=== PATIENT | female | born 1950 | race Caucasian/White ===

== ENCOUNTER 2021-09-13 10:19 | Emergency (ER) | payer MEDICARE, SELFPAY ==
[2021-09-13] VITALS (62 sets, daily range): BP systolic 135–183; BP diastolic 58–93; PULSE 56–77; RESP 7–19; TEMP 36.1–37; O2SAT 95–100
--- NOTE | 2021-09-13 10:15 | RT.EKG_ITS ---
APPROVED REPORT Exam: Resting ECG Reason for Exam: chest pain Patient Location: E HR:76 bpm ECG Measurements Heart Rate 76 AXIS RI 200 P 42 QRSd 94 QRS -43 QT 386 T 50 QTc 435 Conclusion Sinus rhythm...normal P axis, V-rate 60- 99 Probable left atrial enlargement...P >50mS, <-0.10mV V1 Left ventricular hypertrophy...multiple LVH criteria sinus rhythm at 76, left axis, no STEMI, nondiagnostic EKG
--- NOTE | 2021-09-13 10:30 | DI.RAD_ITS ---
Exam(s) XR PORTABLE CHEST AP EXAM: XR PORTABLE CHEST AP CLINICAL HISTORY: chest pain TECHNIQUE: 2D digital imaging was performed. COMPARISON: No exams were available for comparison FINDINGS: LUNGS: Clear. No pleural abnormality seen. HEART: Normal. AORTA: Normal. BONES: Unremarkable for age. Soft tissues: Unremarkable. IMPRESSION: No acute findings. DATA REPOSITORY: RADIATION DOSE DELIVERED:
--- NOTE | 2021-09-13 10:44 | ED.GENADUL_ITS ---
Discharge Plan Discharge Details Chief Complaint: Chest Pain Primary Care Provider: Unknown,Unknown ED Provider: Marie Lafleur Discharge Orders Other Ambulatory Orders: US echocardiogram (Routine) Timeframe: 1 Week Facility: [facility] - Location: DIAGNOSTIC IMAGING Ordered By: Laura Malin Medical Decision Making Mireya Barton is a 71-year-old woman with a history of hyperlipidemia, hypertension presents to the emergency department with chest pain. Patient reports that last night she felt department couch. She woke up and went to go to her bedroom, and noticed pain in her left chest. Pain was achy, radiated to her left back and left arm. Patient reports that pain is persistent and because of this it took her a long time to fall asleep. Patient reports that this morning when she woke up she felt well and had no pain. She states that she went about her usual activities and was outside gardening this morning when pain returned similar to last night: Achy left chest pain radiating to the back and left arm. Patient reports pain is ongoing currently in the emergency department. She states that pain is a 7 out of 10, and not quite as severe as it was last night. She reports that she feels somewhat short of breath with the pain. Rest has not seemed to improve her symptoms. She denies any other pain, fever, cough, vomiting, diarrhea, numbness, weakness, rash, swelling. Patient r eports that she was previously in her usual state of health. She states that she has been eating and drinking as usual. Patient states that she has been taking her medications as prescribed. She denies cardiac history, has never had a stress test in the past. Patient reports that she has had anxiety symptoms in the past that are somewhat similar, but she has not had arm pain in those instances. On exam patient is well and nontoxic-appearing. Systolic murmur loudest at the right sternal border, patient reports this is known to her. Lungs are clear to auscultation. There is mild tenderness of the left anterior chest that reproduces pain. No lower extremity edema, no posterior calf tenderness palpation. Concern for acute coronary syndrome, pulmonary embolism, musculoskeletal pain, other. Exam/history at this time is not consistent with acute aortic pathology, sepsis, acute abdominal pathology. Plan for IV placement, telemetry, EKG, screening labs, 324 mg chewable aspirin, 0.4 mg nitroglycerin, chest x-ray. Will monitor and reassess. Minimal change in pain with first nitro, no change in pain level with additional nitro. Blood pressure significantly improved from initial presentation, systolic now 150. Chest pain unchanged. Exam/history at this time is not consistent with hypertensive emergency. Plan for 2 mg IV morphine. Patient reports improvement in symptoms after morphine. Troponin negative x2. EKG repeated, no ischemic changes. Patient is not low risk by heart score. Plan for admission, Dr. Sofia contacted. Patient does have an elevated D- dimer, given global CT contrast dye shortage, per facility protocol plan for vq scan. Patient seen at bedside by hospitalist Dr. Malin to evaluate for admission. Per Dr. Malin, pain likely musculoskeletal, patient to be discharged after shared decision-making between Dr. Malin and patient with plan for outpatient stress test and outpatient echo. Patient agrees to stay for VQ scan. Patient signed out to Dr. Greyson Lafleur at time of shift change with VQ scan pending. Medical Records Medical records reviewed: Yes I reviewed the patient's medical records. Imaging Data Radiologic Study: Attestation: I personally reviewed and interpreted this imaging study as follows: Radiologist's impression: EXAM:? XR PORTABLE CHEST AP CLINICAL HISTORY:? chest pain TECHNIQUE:? 2D digital imaging was performed. COMPARISON:? No exams were available for comparison FINDINGS: LUNGS: Clear. No pleural abnormality seen. HEART: Normal. AORTA: Normal. BONES: Unremarkable for age.? Soft tissues: Unremarkable. IMPRESSION: No acute? findings. Lab Data Lab results reviewed: Yes I reviewed the patient's lab results. Labs: Laboratory Tests Range/Units 09/13/21 09/13/21 09/13/21 10:47 10:50 10:50 WBC (4.4-10.8) 10^3/uL 5.01 RBC (3.93-5.22) 10^6/uL 4.41 Hgb (11.2-15.7) g/dL 12.9 Hct (36.0-46.0) % 39.4 MCV (80-95) fL 89 MCH (27.0-33.0) pg 29.3 MCHC (32.0-36.0) % 32.7 RDW (11.7-14.6) % 13.2 Plt Count (130-400) 10^3/uL 232 MPV (8.0-11.0) fL 9.6 Immature Gran % 0.2 Neutrophils % 67.4 Lymphocytes % 22.0 Monocytes % 7.4 Eosinophils % 2.6 Basophils % 0.4 Nucleated RBC % (0.0-0.3) % 0.0 Absolute Neutrophils (1.2-6.7) 10^3/uL 3.38 Absolute Lymphocytes (1.2-3.4) 10^3/uL 1.10 L Absolute Monocytes (0.1-0.8) 10^3/uL 0.37 Absolute Eosinophils (0.0-0.7) 10^3/uL 0.13 Absolute Basophils (0.0-0.2) 10^3/uL 0.02 D-Dimer (<500) ng/mlFEU Sodium (136-145) mmol/L 141 Potassium (3.5-5.1) mmol/L 4.6 Chloride (98-107) mmol/L 106 Carbon Dioxide (21.0-32.0) mmol/L 25.0 Anion Gap (3-11) mmol/L 10.0 BUN (7-18) mg/dL 22 H Creatinine (0.55-1.02) mg/dL 1.3 H Estimated GFR/1.73 m2 (mL/min/1.73m2) 40.38 Glucose (74-106) mg/dL 92 Calcium (8.5-10.1) mg/dL 9.4 Magnesium (1.8-2.4) mg/dL 1.9 Total Bilirubin (0.2-1.0) mg/dL 0.8 AST (15-37) U/L 22 ALT (14-59) U/L 20 Alkaline Phosphatase (46-116) U/L 125 H Troponin I (<or=60) ng/L < 50 Total Protein (6.4-8.2) g/dL 7.6 Albumin (3.4-5.0) g/dL 4.0 COVID-19 Source Nasal/Nares SARS-CoV-2 (PCR) (Negative) Negative Range/Units 09/13/21 09/13/21 10:50 13:55 WBC (4.4-10.8) 10^3/uL RBC (3.93-5.22) 10^6/uL Hgb (11.2-15.7) g/dL Hct (36.0-46.0) % MCV (80-95) fL MCH (27.0-33.0) pg MCHC (32.0-36.0) % RDW (11.7-14.6) % Plt Count (130-400) 10^3/uL MPV (8.0-11.0) fL Immature Gran % Neutrophils % Lymphocytes % Monocytes % Eosinophils % Basophils % Nucleated RBC % (0.0-0.3) % Absolute Neutrophils (1.2-6.7) 10^3/uL Absolute Lymphocytes (1.2-3.4) 10^3/uL Absolute Monocytes (0.1-0.8) 10^3/uL Absolute Eosinophils (0.0-0.7) 10^3/uL Absolute Basophils (0.0-0.2) 10^3/uL D-Dimer (<500) ng/mlFEU 891 H Sodium (136-145) mmol/L Potassium (3.5-5.1) mmol/L Chloride (98-107) mmol/L Carbon Dioxide (21.0-32.0) mmol/L Anion Gap (3-11) mmol/L BUN (7-18) mg/dL Creatinine (0.55-1.02) mg/dL Estimated GFR/1.73 m2 (mL/min/1.73m2) Glucose (74-106) mg/dL Calcium (8.5-10.1) mg/dL Magnesium (1.8-2.4) mg/dL Total Bilirubin (0.2-1.0) mg/dL AST (15-37) U/L ALT (14-59) U/L Alkaline Phosphatase (46-116) U/L Troponin I (<or=60) ng/L < 50 Total Protein (6.4-8.2) g/dL Albumin (3.4-5.0) g/dL COVID-19 Source SARS-CoV-2 (PCR) (Negative) ECG Data Attestation: I personally reviewed and interpreted this ECG (s) as follows: Interpretation: EKG shows sinus rhythm at 76, left axis, no STEMI, nondiagnostic EKG Repeat EKG 14: 07 shows sinus rhythm at 66, left axis, no STEMI, nondiagnostic EKG HPI General Date/Time Provider Initiated Documentation: 09/13/21 10:41 . Limitations to Documentation: no limitations . Information obtained by: patient, RN notes reviewed and old records reviewed . HPI Narrative: Mireya Barton is a 71-year-old woman with a history of hyperlipidemia, hypertension presents to the emergency department with chest pain. Patient reports that last night she felt department couch. She woke up and went to go to her bedroom, and noticed pain in her left chest. Pain was achy, radiated to her left back and left arm. Patient reports that pain is persistent and because of this it took her a long time to fall asleep. Patient reports that this morning when she woke up she felt well and had no pain. She states that she went about her usual activities and was outside gardening this morning when pain returned similar to last night: Achy left chest pain radiating to the back and left arm. Patient reports pain is ongoing currently in the emergency department. She states that pain is a 7 out of 10, and not quite as severe as it was last night. She reports that she feels somewhat short of breath with the pain. Rest has not seemed to improve her symptoms. She denies any other pain, fever, cough, vomiting, diarrhea, numbness, weakness, rash, swelling. Patient reports that she was previously in her usual state of health. She states that she has been eating and drinking as usual. Patient states that she has been taking her medications as prescribed. She denies cardiac history, has never had a stress test in the past. Patient reports that she has had anxiety symptoms in the past that are somewhat similar, but she has not had arm pain in those instances. Related Data Allergies Allergy/AdvReac Type Severity Reaction Status Date / Time No Known Allergies Allergy Unverified 09/13/21 10:31 General Stated Complaint: Chest Pain SARABJIT: 2 PFSH All Active Problems (Updated 09/13/21 @ 15:19 by Laura Malin MD) Pleuritic chest pain (Acute) Obstructive sleep apnea (Chronic) 08/01 SLEEP STUDY ([facility]): SEVERE OBSTRUCTIVE SLEEP APNEA-WELL TREATED WITH CPAP 11CM/H2O Hyperlipidemia (Acute 05/14/07) Essential hypertension (Acute 05/14/07) Surgical History (Updated 09/13/21 @ 15:15 by Laura Malin MD) H/O section x3 S/P appendectomy S/P tonsillectomy Family History (Updated 09/13/21 @ 15:15 by Laura Malin MD) Other Colon cancer Hypertension Social History Smoking/Tobacco Use Status: Former Tobacco Use Smoking risk assessment performed?: Yes Alcohol Intake: never Substance use type: marijuana Exam Narrative Exam Narrative: Constitutional: well and [id number], pleasant, conversing normally HENT: head atraumatic/normocephalic/normal inspection, mucous membranes moist Eyes: conjunctiva normal, sclera normal, pupils 3mm b/l Neck: no stridor, normal ROM, trachea midline Chest: normal inspection, mild tenderness palpation of the left anterior chest that reproduces pain Resp: normal work of breathing, LCTAB Cardio: normal rate, normal rhythm, systolic murmur loudest at the right sternal border known to patient GI: abdomen soft, non-tender, non-distended Back: normal inspection, no rash Skin: warm, dry, normal color, no rash Neuro: alert, not altered, grossly non-focal, normal tone Ext: no edema, no posterior calf tenderness to palpation, no edema or tenderness palpation of the left forearm an area of reported achiness Psych: normal mood, normal affect, normal behavior Course Vital Signs Vital signs: Vital Signs Temperature 36.1 C L 09/13/21 10:26 Pulse 76 09/13/21 10:26 Respiratory Rate 16 09/13/21 10:26 Blood Pressure 183/93 H 09/13/21 10:26 Pulse Oximetry 100 09/13/21 10:26 Temperature 36.1 C L 09/13/21 10:26 Temperature Source Skin 09/13/21 10:26 Pulse 76 09/13/21 10:26 Respiratory Rate 16 09/13/21 10:26 Respiratory Effort 09/13/21 10:26 Blood Pressure 183/93 H 09/13/21 10:26 Blood Pressure Position Sitting 09/13/21 10:26 Pulse Oximetry 100 09/13/21 10:26 Oxygen Delivery Method Room Air 09/13/21 10:26 Oxygen Flow Rate 0 09/13/21 10:26 Pain Level 7 09/13/21 10:26
[2021-09-13 10:54] LABS: Source Nasal/Nares
[2021-09-13 11:01] LABS: Abs Immature Grans 0.01 10^3/uL (0.0-0.06); Absolute Basophil Count 0.02 10^3/uL (0.0-0.2); Absolute Eosinophil Count 0.13 10^3/uL (0.0-0.7); Absolute Monocyte Count 0.37 10^3/uL (0.1-0.8); Absolute Neutrophil Count 3.38 10^3/uL (1.2-6.7); Basophils % 0.4; Eosinophils % 2.6; HCT 39.4 % (36.0-46.0); HGB 12.9 g/dL (11.2-15.7); Immature Grans % 0.2; MCH 29.3 pg (27.0-33.0); MCHC 32.7 % (32.0-36.0); MCV 89 fL (80-95); MPV 9.6 fL (8.0-11.0); Monocytes % 7.4; Neutrophils % 67.4; Platelet Count 232 10^3/uL (130-400); RBC 4.41 10^6/uL (3.93-5.22); RDW 13.2 % (11.7-14.6); RDW-SD 43.5 fL; WBC 5.01 10^3/uL (4.4-10.8)
[2021-09-13] MEDS: Aspirin 81 MG CHEW 324 MG CH (11:01)
[2021-09-13] MEDS: nitroGLYcerin 0.4 MG TAB SL ×3 (11:03→12:44)
[2021-09-13 11:36] LABS: D-Dimer 891 ng/mlFEU (<500)
[2021-09-13 11:47] LABS: COVID-19 PCR Negative (Negative)
[2021-09-13 12:15] LABS: ALT 20 U/L (14-59); AST 22 U/L (15-37); Alkaline Phosphatase 125 U/L (46-116); BUN 22 mg/dL (7-18); Bilirubin, Total 0.8 mg/dL (0.2-1.0); CREATININE 1.3 mg/dL (0.55-1.02); Calcium 9.4 mg/dL (8.5-10.1); Chloride 106 mmol/L (98-107); Estimated GFR 40.38 (mL/min/1.73m2); Glucose 92 mg/dL (74-106); Magnesium 1.9 mg/dL (1.8-2.4); Potassium 4.6 mmol/L (3.5-5.1); Sodium 141 mmol/L (136-145); Total Protein 7.6 g/dL (6.4-8.2); Troponin I < 50 ng/L (<or=60)
--- NOTE | 2021-09-13 12:20 | DI.NM_ITS ---
Exam(s) NM LUNG SCAN VENT PERF AEROS EXAM: NM LUNG SCAN VENT PERF AEROS CLINICAL HISTORY: chest pain, SOB, r/o PE. TECHNIQUE: Injected Dose: Ventilation: 30 mCi Tc-99m DTPA via inhalation Perfusion: 5.0 mCi Tc-99m MAA via IV COMPARISON: CR XR PORTABLE CHEST AP from 09/13/2021 FINDINGS: Chest X-Ray: Clear lungs. Perfusion: Normal. Ventilation:Normal . IMPRESSION: 1. Low probability VQ examination. . . . Results of this exam have been verbally communicated with ER provider. Modified PIOPED II criteria Probability Criteria High Two or more segments of V/Q mismatch Low Normal Perfusion, Non segmental perfusion abnormalitie s, pleural effusion in at least 1/3 of pleural cavity with no other defect Radiograph/perfusion matched defect in mid to upper lung confined to segment, one to three small segmental perfusion defects (<25% of segment) Perfusion defect smaller than corresponding radiogra phic lesion. Intermediate All other findings DATA REPOSITORY:
[2021-09-13] MEDS: MORPHine 10 MG/ML VIAL 2 MG IVP (13:33)
--- NOTE | 2021-09-13 14:00 | RT.EKG_ITS ---
APPROVED REPORT Exam: Resting ECG Reason for Exam: repeat EKG Patient Location: E HR:66 bpm ECG Measurements Heart Rate 66 AXIS NC 227 P 45 QRSd 91 QRS -39 QT 414 T 33 QTc 434 Conclusion Sinus rhythm...normal P axis, V-rate 60- 99 Prolonged NC interval...NC >220, V-rate 50- 90 Probable left atrial enlargement...P >50mS, <-0.10mV V1 Left ventricular hypertrophy...multiple LVH criteria sinus rhythm at 66, left axis, no STEMI, nondiagnostic EKG
[2021-09-13 14:18] LABS: Troponin I < 50 ng/L (<or=60)
[2021-09-13] MEDS: Ketorolac 15 MG/ML VIAL IVP (15:01)
--- NOTE | 2021-09-13 15:06 | W.MEDCONSULT ---
Date of service: 09/13/21 Time of Service: 14:00 Assessment and Plan Assessment and plan (1) Pleuritic chest pain: Status: Acute Assessment and plan: While clinically I think the patient is having a musculoskeletal pain from a muscle spasm, there is concern for a PE, given recent COVID-19. Await VQ scan in the ED. The patient was not interested in staying overnight or getting admitted. Would benefit from an outpatient echo and MPI stress test (has to be done 48 hrs after the VQ scan). Would discharge with muscle relaxants. As discussed with Dr Lafleur, I will order outpatient echo and she will order the MPI. History of Present Illness History of Present Illness Chief Complaint: Chest pain Narrative: Mr Barton is a 71 yo F w/ PMHx of HTN, hyperlipidemia, COVID-19 2 months ago, as well as brief history of smoking in the past, who presented to [facility] ED today c/o L-sided chest pain, worse on inspiration. The pain started last night when the patient got up from the couch after falling asleep there, was better this morning after some sleep, and then recurred while gardening today. There is also a pain in her L forearm that is sometimes but not always there and a back pain, which the patient does not specifically localize, though she does state it is worse with inspiration. Denies trauma/falls. Denies falling asleep in an uncomfortable position. Denies personal or family hx of blood clots; denies recent trauma. Endorses stress at work. In the ED, the patient had 2 negative EKGs, two negative troponins while having chest pain. Her d-dimer is positive. VQ scan was ordered. I had a lengthy discussion with the patient about how to proceed. We discused getting a VQ scan and an echo and staying in the hospital through tomorrow morning with outpatient stress test vs getting the VQ scan and, if negative, going home (not alone) with outpatient echo and MPI. The patient chose the latter. I did recommend to Dr Lafleur that we try toradol as well - this was about to be administered. Review of Systems All systems reviewed & are unremarkable except as noted in HPI and below PFSH All Active Problems (Updated 09/13/21 @ 15:19 by Laura Malin MD) Pleuritic chest pain (Acute) Obstructive sleep apnea (Chronic) 08/01 SLEEP STUDY ([facility]): SEVERE OBSTRUCTIVE SLEEP APNEA-WELL TREATED WITH CPAP 11CM/H2O Hyperlipidemia (Acute 05/14/07) Essential hypertension (Acute 05/14/07) Surgical History (Updated 09/13/21 @ 15:15 by Laura Malin MD) H/O section x3 S/P appendectomy S/P tonsillectomy Family History (Updated 09/13/21 @ 15:15 by Laura Malin MD) Other Colon cancer Hypertension Social History Smoking/Tobacco Use Status: Former Tobacco Use Smoking risk assessment performed?: Yes Alcohol Intake: never Substance use type: marijuana Exam Narrative Exam Narrative: General: Pleasant anxious female, A&Ox3, appears comfortable Neurological: A&Ox3, no focal deficits Psychiatric: Anxious, pleasant/cooperative, appropriate speech pattern/affect Skin: Visible skin intact HEENT: Atraumatic, normocephalic, EOMI, MMM, no goiter or JVD Cardiovascular: RRR, no m/r/g Lungs: CTAB; chest pain not reproducible with palpation; large L paraspinal muscle spasm Gastrointestinal: soft, nontender, nondistended Genitourinary: deferred Extremities: 2+ pedal pulses B, no e/c/c Results Last Vital Signs Temp 36.1 C L 09/13/21 10:26 Pulse 59 L 09/13/21 11:01 Resp 11 L 09/13/21 11:10 BP 135/58 L 09/13/21 11:01 Pulse Ox 98 09/13/21 10:46 Labs Result diagrams: 09/13/21 10:50 09/13/21 10:50 Labs: Laboratory Results - last 24 hr 09/13/21 09/13/21 09/13/21 10:47 10:50 10:50 WBC 5.01 RBC 4.41 Hgb 12.9 Hct 39.4 MCV 89 MCH 29.3 MCHC 32.7 RDW 13.2 Plt Count 232 MPV 9.6 Immature Gran % 0.2 Neutrophils % 67.4 Lymphocytes % 22.0 Monocytes % 7.4 Eosinophils % 2.6 Basophils % 0.4 Nucleated RBC % 0.0 Absolute Neutrophils 3.38 Absolute Lymphocytes 1.10 L Absolute Monocytes 0.37 Absolute Eosinophils 0.13 Absolute Basophils 0.02 D-Dimer Sodium 141 Potassium 4.6 Chloride 106 Carbon Dioxide 25.0 Anion Gap 10.0 BUN 22 H Creatinine 1.3 H Estimated GFR/1.73 m2 40.38 Glucose 92 Calcium 9.4 Magnesium 1.9 Total Bilirubin 0.8 AST 22 ALT 20 Alkaline Phosphatase 125 H Troponin I < 50 Total Protein 7.6 Albumin 4.0 COVID-19 Source Nasal/Nares SARS-CoV-2 (PCR) Negative 09/13/21 09/13/21 10:50 13:55 WBC RBC Hgb Hct MCV MCH MCHC RDW Plt Count MPV Immature Gran % Neutrophils % Lymphocytes % Monocytes % Eosinophils % Basophils % Nucleated RBC % Absolute Neutrophils Absolute Lymphocytes Absolute Monocytes Absolute Eosinophils Absolute Basophils D-Dimer 891 H Sodium Potassium Chloride Carbon Dioxide Anion Gap BUN Creatinine Estimated GFR/1.73 m2 Glucose Calcium Magnesium Total Bilirubin AST ALT Alkaline Phosphatase Troponin I < 50 Total Protein Albumin COVID-19 Source SARS-CoV-2 (PCR) Imaging Additional studies: CXR: No acute? findings. EKG: HR 76, NSR, no acute ischemia, EKG #2: Prolonged AK interval, SR, HR 66, no acute ischemia
--- NOTE | 2021-09-13 16:54 | ED.PROG_ITS ---
Date of service: 09/13/21 Time of Service: 15:54 Medical Decision Making Care signed out by Dr. Ema Lafleur plan to follow-up on VQ scan. VQ scan was interpreted by radiology, I spoke with Dr. Coello, she interpreted as normal. Patient had medical consultation performed by Dr. Malin who recommends treatment for musculoskeletal pain and outpatient follow-up for stress test. All results were discussed with the patient. Discharge plan was discussed with the patient. Lab Data Lab results reviewed: Yes I reviewed the patient's lab results. Labs: Laboratory Tests Range/Units 09/13/21 09/13/21 09/13/21 10:47 10:50 10:50 WBC (4.4-10.8) 10^3/uL 5.01 RBC (3.93-5.22) 10^6/uL 4.41 Hgb (11.2-15.7) g/dL 12.9 Hct (36.0-46.0) % 39.4 MCV (80-95) fL 89 MCH (27.0-33.0) pg 29.3 MCHC (32.0-36.0) % 32.7 RDW (11.7-14.6) % 13.2 Plt Count (130-400) 10^3/uL 232 MPV (8.0-11.0) fL 9.6 Immature Gran % 0.2 Neutrophils % 67.4 Lymphocytes % 22.0 Monocytes % 7.4 Eosinophils % 2.6 Basophils % 0.4 Nucleated RBC % (0.0-0.3) % 0.0 Absolute Neutrophils (1.2-6.7) 10^3/uL 3.38 Absolute Lymphocytes (1.2-3.4) 10^3/uL 1.10 L Absolute Monocytes (0.1-0.8) 10^3/uL 0.37 Absolute Eosinophils (0.0-0.7) 10^3/uL 0.13 Absolute Basophils (0.0-0.2) 10^3/uL 0.02 D-Dimer (<500) ng/mlFEU Sodium (136-145) mmol/L 141 Potassium (3.5-5.1) mmol/L 4.6 Chloride (98-107) mmol/L 106 Carbon Dioxide (21.0-32.0) mmol/L 25.0 Anion Gap (3-11) mmol/L 10.0 BUN (7-18) mg/dL 22 H Creatinine (0.55-1.02) mg/dL 1.3 H Estimated GFR/1.73 m2 (mL/min/1.73m2) 40.38 Glucose (74-106) mg/dL 92 Calcium (8.5-10.1) mg/dL 9.4 Magnesium (1.8-2.4) mg/dL 1.9 Total Bilirubin (0.2-1.0) mg/dL 0.8 AST (15-37) U/L 22 ALT (14-59) U/L 20 Alkaline Phosphatase (46-116) U/L 125 H Troponin I (<or=60) ng/L < 50 Total Protein (6.4-8.2) g/dL 7.6 Albumin (3.4-5.0) g/dL 4.0 COVID-19 Source Nasal/Nares SARS-CoV-2 (PCR) (Negative) Negative Range/Units 09/13/21 09/13/21 10:50 13:55 WBC (4.4-10.8) 10^3/uL RBC (3.93-5.22) 10^6/uL Hgb (11.2-15.7) g/dL Hct (36.0-46.0) % MCV (80-95) fL MCH (27.0-33.0) pg MCHC (32.0-36.0) % RDW (11.7-14.6) % Plt Count (130-400) 10^3/uL MPV (8.0-11.0) fL Immature Gran % Neutrophils % Lymphocytes % Monocytes % Eosinophils % Basophils % Nucleated RBC % (0.0-0.3) % Absolute Neutrophils (1.2-6.7) 10^3/uL Absolute Lymphocytes (1.2-3.4) 10^3/uL Absolute Monocytes (0.1-0.8) 10^3/uL Absolute Eosinophils (0.0-0.7) 10^3/uL Absolute Basophils (0.0-0.2) 10^3/uL D-Dimer (<500) ng/mlFEU 891 H Sodium (136-145) mmol/L Potassium (3.5-5.1) mmol/L Chloride (98-107) mmol/L Carbon Dioxide (21.0-32.0) mmol/L Anion Gap (3-11) mmol/L BUN (7-18) mg/dL Creatinine (0.55-1.02) mg/dL Estimated GFR/1.73 m2 (mL/min/1.73m2) Glucose (74-106) mg/dL Calcium (8.5-10.1) mg/dL Magnesium (1.8-2.4) mg/dL Total Bilirubin (0.2-1.0) mg/dL AST (15-37) U/L ALT (14-59) U/L Alkaline Phosphatase (46-116) U/L Troponin I (<or=60) ng/L < 50 Total Protein (6.4-8.2) g/dL Albumin (3.4-5.0) g/dL COVID-19 Source SARS-CoV-2 (PCR) (Negative) Sign Out Sign Out Data: Sign Out Comment: Patient signed out to Dr. Greyson Lafleur at time of shift change with VQ scan pending. Last updated by Marie Lafleur MD at 09/13/21 16:26 Discharge Plan Disposition Patient Disposition: HOME Condition: Stable Discharge Details Clinical Impression: Chest pain Primary Care Provider: Unknown,Unknown ED Provider: Greyson Lafleur Discharge Instructions Instructions: Chest Pain (ED) Additional Instructions: Please return immediately to the emergency department if you develop any new or worsening symptoms, if your condition does not improve as expected, or if you become otherwise concerned. It is extremely important that you call soon as possible to make an appointment to be seen in follow-up for this visit by your primary care doctor. You will need to have an outpatient echocardiogram performed and an outpatient stress test performed. Discharge Orders Other Ambulatory Orders: US echocardiogram (Routine) Timeframe: 1 Week Facility: [facility] - Location: DIAGNOSTIC IMAGING Ordered By: Laura Malin
--- NOTE | 2021-09-13 17:07 | NUR.NOTE ---
Nursing Note: Faxed to [facility] request for MPI Nuclear Medicine Exercise Tolerance Test for chest pain, to be done on or after 09/13/21.
== END 2021-09-13 17:15 | disposition home or self-care (01) ==
PROVIDERS: Student in an Organized Health Care Education/Training Program; Emergency Provider Student in an Organized Health Care Education/Training Program
DX: R07.9 Chest pain, unspecified (principal); R06.02 Shortness of breath; Z86.16 Personal history of COVID-19
CPT/HCPCS: 80053; 87635; 93005; 96374; 96375; 99283; 99284; 99285; 71045; 78582; 83735; 84484; 85025; 85379; 93010; J1885; J2270

== ENCOUNTER → 2021-10-11 01:24 | Outpatient (CLI) | payer MEDICARE, SELFPAY ==
--- NOTE | 2021-10-11 08:45 | DI.NM_ITS ---
APPROVED REPORT Exam: Pharmacologic Patient Location: Out-Patient Room/Bed: Stress Nurse: Micki Stokes RN Ordering Provider:JULIA SOTO, Contact Number: BMI: 32.61 Baseline Rhythm: Sinus Bradycardia/ First degree heart block Indications: CHEST PAIN Medical History Medical History: JANIE, HTN, HLD, Pleuritic chest pain, Cardiac murmur Cardiac Medications: Metoprolol succinate, Atorvastatin, Lisinopril Allergies: No known drug allergies Cardiac Risk Factors: Hyperlipidemia, HTN, Smoking (former), Obesity Previous Cardiac Procedures: None Pretest Chest Pain Characteristics: No chest pain Exercise History: Sedentary Physical Disabilities: None Lung Sounds: Clear to auscultation Heart Sounds: Regular, diminished Stress Test Details Test: Exercise stress converted to pharmacologic stress due to failure to obtain a diagnostic stress test. Reason for pharmacologic stress test: changed from exercise stress test due to inability to reach t arget heart rate. Nuclear Acquisition: Rest Tc-99m/Stress Tc-99m 1 day Rest Isotope: Tc-99m Sestamibi. Dose: 11.0 Date: 10/11/2021 Injection Time: 0840 Stress Isotope: Tc-99m Sestamibi. Dose: 36.0 Date: 10/11/2021 Injection Time: 1024 HR Resting HR Supine: 55 bpm Max Heart Rate (APMHR): 149.271533 bpm Resting HR Standin bpm Target HR (85% APMHR): 126.352925 bpm Max HR Achieved: 112 bpm % of APMHR: 75.17 Recovery HR: 82 bpm HR response to stress: Blunted HR response to stress Comment: Metoprolol succinate not held for stress test. BP Resting BP Supine: 132/82 mmHg Resting BP Standin/76 mmHg Max BP: 182/86 mmHg Recovery BP: 138/80 mmHg BP response to stress: Normal blood pressure response to stress. ECG Resting ECG: Sinus Bradycardia, 1st degree AV block Ectopy: None Stress ECG: Sinus Tachycardia ST Change: No significant ST segment changes noted Arrhythmia: rare PAC Recovery ECG: Sinus Rhythm Recovery ST Change: No significant ST segment changes noted Recovery Arrhythmia: None Clinical Reason for Termination: Dyspnea/Lightheadedness Stress Symptoms: Dyspnea, Lightheadedness Exercise duration: 08 min29 sec Highest Stage Reached: Stage 3: 3.4 mph at 14% grade. Exercise capacity: 10.16 METs Rate Pressure Product: [id number] Stress ECG Conclusion 1. This exercise stress test was compared to a pharmacological stress test due to failure to reach ta rget heart rate (75% reached). Beta-blockade was not held prior to the exam. However, the patient's exercise tolerance was quite good performing 10 METS 2. Blood pressure augmented appropriately. 3. During the stress portion of the test there was no significant arrhythmia or evidence of ischemia on ECG portion of the exam. Stress Test Summary STAGE Time (mins) Speed (mph) Grade (%) HR BP SYMPTOMS METS Supine 55 132/82 Standing 57 118/76 1 3 1.7 10 103 162/78 4.6 2 6 2.5 12 109 178/84 7 3 9 3.4 14 111 182/86 c/o lightheadedness 10.2 1 min post Lexiscan injection 96 136/72 3 min post Lexiscan injection 77 152/82 6 min post Lexiscan injection 82 138/80 MPI Conclusion The patient's ejection fraction was 69% with stress. There were no wall motion abnormalities. There is no evidence of abnormal perfusion on the imaging portion of the exam. This represents a normal SPECT stress test. Radiologist Interpretation Radiologist Interpretation by: Willard Chacon MD Interpretation Date/Time: 10/11/2021 16:43:39
[2021-10-11] MEDS: Regadenoson 0.4 MG/5 ML SYR IVP (10:30)
== END ==
PROVIDERS: PCP Nurse Practitioner Adult Health; Visit Provider Student in an Organized Health Care Education/Training Program
DX: R07.9 Chest pain, unspecified (principal)
CPT/HCPCS: 78452; 93016; 93018; 93017; J2785